=== PATIENT | male | born 1955 | race Caucasian/White ===

== ENCOUNTER 2017-07-09 13:21 | Inpatient (IN) | payer MEDICARE, BC ==
[2017-07-09] MEDS ORDERED: METHYLPREDNISOLONE PF 125MG/VIAL IVP ONE (13:24)
[2017-07-09] MEDS ORDERED: DIPHENHYDRAMINE HCL IV 50 MG/ML VIAL IVP ONE (13:24)
[2017-07-09] MEDS ORDERED: RANITIDINE HCL 50 MG in 0.9 % SODIUM CHLORIDE 100ML 100 ML IVPB ONE (13:24)
--- NOTE | 2017-07-09 13:30 | Emergency Department Record ---
History of Present Illness - General Chief complaint: Shortness of breath Stated complaint: JANIE LITTLE HAS COPD Time Seen by Provider: 07/09/17 13:24 Source: Patient, Family Mode of Arrival: Ambulatory Limitations: No limitations - History of Present Illness Initial Comments: ^2 yo male presents for evaluation for abnormal blood test. The patient states he saw his PCP yesterday. He had labs performed yesterday. He was called today and told to go to the ER for an elevated BNP. The patient states he is always short of breath. He has significant COPD history. He had a history of pacer/defibrillator about 2 years ago. He has a long history of seizures. He is most concerned about his doctor decreasing his Xanax and feels this is a risk for seizures. No edema. His PCP is Dr Peters. The patients metal forger's assistant is in Dr Wallis. (Additional History by Dr Peters) The patient was seen by Dr Peters yesterday. The patient was found to be hypoxic. The patient's working diagnosis was COPD. The patient was directed to the ED with the elevated BNP of 2400. Dr Peters was not aware of any CAD or CHF but the patient does have a pacer. His concern for sending the patient was for a work up for CAD/CHF. Dr Caballero did recommend a d decrease dosing of the narcotic medications as these might be contributing to his hypoxia. MD Complaint: Other (Short of Breath, COPD, Elevated BNP) -: Hour(s) Symptoms: Difficulty breathing Severity: Moderate Treatment Prior to Arrival: None Previous Allergy History: None - Related Data Home Medications Medication Instructions Recorded Confirmed Last Taken Atorvastatin Calcium [Lipitor] 10 mg PO DAILY 07/09/17 07/09/17 07/09/17 Levofloxacin [Levaquin] 500 mg PO ASDIR 07/09/17 07/09/17 07/09/17 Lisinopril [Lisinopril] 2.5 mg PO DAILY 07/09/17 07/09/17 07/09/17 Oxycodone HCl/Acetaminophen 1 tab PO ASDIR 07/09/17 07/09/17 07/09/17 [Percocet 5mg/325mg] Spironolactone [Aldactone] 25 mg PO ASDIR 07/09/17 07/09/17 07/09/17 Previous Rx's Medication Instructions Recorded Albuterol Sulfate [Proair Hfa] 1 - 2 puff IH .EVERY 4-6 HOURS PRN 07/28/15 #1 inhaler Allergies Allergy/AdvReac Type Severity Reaction Status Date / Time pneumococcal vaccine Allergy Unknown SWELLING Verified 07/09/17 13:37 [PNEUMOCOCCAL VACCINE] OF THE TONGUE Review of Systems Constitutional: Denies: Chills, Fever, Malaise, Weakness Eyes: Denies: Eye discharge, Eye pain, Photophobia ENT: Denies: Congestion, Dental pain, Ear pain, Epistaxis, Hearing loss, Throat pain Respiratory: Reports: Cough, Dyspnea, Wheezes. Denies: Hemoptysis, Stridor Cardiovascular: Reports: Dyspnea on exertion. Denies: Chest pain, Edema, Palpitations, Syncope Endocrine: Reports: Fatigue Gastrointestinal: Denies: Abdominal pain, Diarrhea, Nausea, Vomiting Genitourinary: Denies: Dysuria, Frequency, Hematuria Musculoskeletal: Denies: Arthralgia, Back pain, Myalgia Skin: Reports: As per HPI, Rash. Denies: Bruising, Change in color Neurological: Reports: Seizure. Denies: Confusion, Headache, Numbness Psychiatric: Denies: Anxiety Hematological/Lymphatic: Denies: Anemia, Blood Clots, Easy bleeding, Easy bruising, Swollen glands Past Medical History - SOCIAL HISTORY Smoking Status: Former smoker - RESPIRATORY Hx Respiratory Disorders: Yes Hx COPD: Yes - CARDIOVASCULAR Hx Cardio Disorders: Yes Hx Hypotension: Yes Hx Pacemaker/Defib: Yes - NEURO Hx Neuro Disorders: Yes 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) - GI Hx GI Disorders: Yes Hx Hiatal Hernia: Yes - Hx Genitourinary Disorders: No - ENDOCRINE Hx Endocrine Disorders: Yes Hx Diabetes: Yes (hypoglycemic) - MUSCULOSKELETAL Hx Musculoskeletal Disorders: Yes - PSYCH Hx Psych Problems: No - HEMATOLOGY/ONCOLOGY Hx Hematology/Oncology Disorders: Yes Comment:: Hep B Family Medical History Hx Diabetes: Brother/Sister Physical Exam - General General Appearance: Alert, Oriented x3, Cooperative, No acute distress Limitations: No limitations - Head Head exam: Atraumatic, Normocephalic, Normal inspection - Eye Eye exam: Normal appearance, PERRL. negative: Conjunctival injection, Periorbital swelling, Scleral icterus - ENT ENT exam: Mucous membranes moist, Normal orophraynx Ear exam: Normal external inspection Nasal Exam: Normal inspection Mouth exam: Tongue normal. negative: Drooling, Muffled voice Teeth exam: Normal inspection. negative: Dental caries Throat exam: Normal inspection. negative: Tonsillar erythema, Tonsillomegaly, Tonsillar exudate, R peritonsillar mass, L peritonsillar mass - Neck Neck exam: Normal inspection, Full ROM. negative: Lymphadenopathy, Tenderness - Respiratory Respiratory exam: Accessory muscle use, Decreased breath sounds, Rhonchi, Wheezes. negative: Normal lung sounds bilaterally, Chest wall tenderness, Prolonged expiratory, Respiratory distress, Stridor - Cardiovascular Cardiovascular Exam: Regular rate, Normal rhythm, Normal heart sounds Peripheral Pulses: 2+: Radial (R), Radial (L) - GI/Abdominal GI/Abdominal exam: Soft. negative: Tenderness - Rectal Rectal exam: Deferred - exam: Deferred - Extremities Extremities exam: Normal inspection, Full ROM, Normal capillary refill, Other ( no lower extremity edema). negative: Pedal edema, Tenderness - Back Back exam: Reports: Normal inspection (no hives) - Neurological Neurological exam: Alert, Normal gait, Oriented X3 - Psychiatric Psychiatric exam: Normal affect, Normal mood - Skin Skin exam: Dry, Intact, Normal color, Warm Course - Reevaluation(s) Reevaluation #1: The patient's outpatient labs were reviewed BNP was 2462 07/09/17 13:29 07/09/17 13:53 EKG V paced rate is 86, T wave inversion anterior leads. Prior EKG 2015 not paced. [place] [facility] [place] 14:08 07/09/17 14:32 The labs were reviewed The CBC and CMP are unremarkable The BNP is elevated at 3740 The Troponin is negative [facility] [place] available today and will be preformed I recommend admission, echo, cardiology consult tomorrow. 07/09/17 15:07 The chest XR was read as no acute process but consistent with COPD The lungs are clear of infiltrate I SW Dr Gilbert of the admission service for admission for SOPD treatment, hypoxia, ECHO, cardiology consultation Medical Decision Making - Lab Data Result diagrams: 07/09/17 13:35 07/09/17 13:35 Disposition Disposition: Admit Clinical Impression: COPD (chronic obstructive pulmonary disease), Hypoxia, Elevated brain natriuretic peptide (BNP) level Disposition: Still a Patient at [facility] Decision to Admit: Admit from ER Decision to Admit Date: 07/09/17 Decision to Admit Time: 15:17 Condition: (2) Stable Time of Disposition: 15:18 Quality - Quality Measures Quality Measures: N/A - Blood Pressure Screening Does Patient Have Any of the Following: No Blood Pressure Classification: Normal BP Reading Systolic Measurement: 117 Diastolic Measurement: 77 Screening for High Blood Pressure: < Normal BP, F/U Not Required > [[id number]]
[2017-07-09] MEDS ORDERED: LORAZEPAM 2 MG/ML VIAL IV ONE ×2 (13:42→14:50)
[2017-07-09] MEDS ORDERED: IPRATROPIUM/ALBUTEROL (0.5MG/3MG) NEB INH ONE ×2 (13:42→13:44)
[2017-07-09 13:51] LABS: BASO % 0.2 % (0-6); EOS % 3.1 % (0-6); GRAN % 57.1 % (47-80); HEMATOCRIT 41.2 % (42.0-52.0); HEMOGLOBIN 14.3 gm/dl (14.0-18.0); MEAN CELL VOLUME 102.2 fl (81-97); MEAN CORPUSCULAR HGB CONC 34.7 g/dl (32-36); MEAN PLATELET VOLUME 9.9 fl (7.4-10.4); MONO % 7.6 % (0-9); PLATELET COUNT 270 K/uL (130-400); RED BLOOD COUNT 4.03 M/uL (4.40-5.70); RED CELL DISTRIBUTION WIDTH 14.9 % (11.5-14.5); WHITE BLOOD COUNT W/O DIFF 5.1 K/uL (4.2-12.2)
[2017-07-09 13:52] LABS: MEAN CORPUSCULAR HEMOGLOBIN 35.4 pg (27-33)
[2017-07-09 14:11] LABS: ALB/GLOB RATIO 1.4 (1.1-1.8); ALBUMIN 4.2 g/dL (4.0-5.0); ALKALINE PHOSPHATASE 125 U/L (40-129); ALT/SGPT 23 U/L (<41); AST/SGOT 39 U/L (10.0-50.0); BLOOD UREA NITROGEN 8 mg/dL (8-23); CREATININE 0.9 mg/dL (0.7-1.2); EST GLOMERULAR FILTRATION RATE > 60 mL/min; GLUCOSE,RANDOM 123 mg/dL (74-109); TOTAL PROTEIN 7.2 g/dL (6.6-8.7)
[2017-07-09 14:12] LABS: TROPONIN I < 0.30 ng/mL (0.00-0.300)
[2017-07-09] MEDS ORDERED: NICOTINE 21 MG/24 HOUR PATCH TD STA (14:40)
[2017-07-09] MEDS ORDERED: ALBUTEROL SULFATE (0.083%) 2.5 MG/3 ML NEB INH PRN (18:26)
[2017-07-09] MEDS ORDERED: OXYCODONE HCL/APAP 5MG/325MG TABLET PO SCH (18:26)
[2017-07-09] MEDS ORDERED: LEVOFLOXACIN 500MG IVPB 500 MG/100 ML BAG IVPB ONE (18:26)
[2017-07-09] MEDS ORDERED: METHYLPREDNISOLONE PF 125MG/VIAL IVP SCH ×2 (18:26→19:45)
[2017-07-09] MEDS ORDERED: SPIRONOLACTONE 25 MG TAB PO SCH (18:26)
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
[2017-07-09] MEDS ORDERED: LEVOFLOXACIN 500 MG TABLET PO ONE (20:19)
[2017-07-09] MEDS: OXYCODONE HCL/APAP 5MG/325MG TABLET PO PRN (20:31)
[2017-07-09] MEDS: IPRATROPIUM/ALBUTEROL (0.5MG/3MG) NEB INH SCH ×2 (21:30→21:49)
[2017-07-09] MEDS: LEVETIRACETAM 500 MG TABLET PO SCH (21:46)
[2017-07-09] MEDS: METHYLPREDNISOLONE PF 125MG/VIAL IVP SCH (21:50)
[2017-07-09] MEDS ORDERED: TRAZODONE 50 MG TABLET PO SCH (22:00)
[2017-07-09] MEDS ORDERED: ALPRAZOLAM 1 MG TAB PO SCH (22:00)
[2017-07-09] MEDS ORDERED: DIPHENHYDRAMINE HCL 25 MG CAPSULE PO SCH (23:25)
[2017-07-10] MEDS: IPRATROPIUM/ALBUTEROL (0.5MG/3MG) NEB INH SCH ×4 (01:42→14:12)
[2017-07-10] MEDS: OXYCODONE HCL/APAP 5MG/325MG TABLET PO PRN ×2 (02:24→10:10)
--- NOTE | 2017-07-10 07:19 | RADIOLOGY REPORT ---
EXAM: CHEST, TWO VIEWS HISTORY: SMOKING. TECHNIQUE: Frontal and lateral views of the chest were obtained. Comparison: Prior chest from 05/13/15. FINDINGS: The heart size is normal. Left sided pacing device noted. Underlying COPD. The lungs are clear. No pneumothorax. IMPRESSION: COPD. THE LUNGS ARE CLEAR. JOB NUMBER: [id number] MTDD
[2017-07-10 07:36] LABS: BLOOD UREA NITROGEN 15 mg/dL (8-23); CREATININE 1.1 mg/dL (0.7-1.2); EST GLOMERULAR FILTRATION RATE > 60 mL/min; GLUCOSE,RANDOM 202 mg/dL (74-109)
[2017-07-10] MEDS ORDERED: SPIRONOLACTONE 25 MG TAB PO SCH (10:00)
[2017-07-10] MEDS ORDERED: ENOXAPARIN 40 MG/0.4 ML SYR SQ SCH (10:00)
[2017-07-10] MEDS ORDERED: ATORVASTATIN 20 MG TABLET PO SCH (10:00)
[2017-07-10] MEDS ORDERED: BREO (FLUTICASONE/VILANTEROL) 200MCG/25MCG INHALER INH SCH (10:00)
[2017-07-10] MEDS ORDERED: ALPRAZOLAM 0.25 MG TABLET PO SCH (10:00)
[2017-07-10] MEDS ORDERED: LISINOPRIL 5 MG TABLET PO SCH (10:00)
[2017-07-10] MEDS: LEVETIRACETAM 500 MG TABLET PO SCH ×2 (10:12→10:31)
[2017-07-10] MEDS: DOXYCYCLINE HYCLATE 100 MG CAPSULE PO SCH ×2 (10:12→10:32)
[2017-07-10] MEDS ORDERED: ALPRAZOLAM 0.25 MG TABLET PO ONE (10:30)
[2017-07-10] MEDS ORDERED: LEVETIRACETAM 750 MG PO SCH (10:30)
[2017-07-10] MEDS: METHYLPREDNISOLONE PF 125MG/VIAL IVP SCH (10:38)
[2017-07-10] MEDS ORDERED: DIPHENHYDRAMINE HCL 25 MG CAPSULE PO SCH (22:00)
--- NOTE | 2017-07-11 15:09 | Medical Records Consult ---
DATE OF CONSULTATION: 07/10/17 Mr. Arciniega is currently 62 years old, who presented to [facility] as directed his primary care physician. Mr. Arciniega has been having some dyspnea and had an outpatient laboratory profile demonstrating elevated basic natriuretic peptide. Mr. Arciniega is a patient of Dr. Mark Wallis. Mr. Arciniega has a history of a permanent pacemaker placed in 2015, cardiac catheterization in 2015 demonstrating normal coronaries with an ejection fraction mildly reduced. He had a recent echocardiogram demonstrating an ejection fraction of approximately 45%. He presents to [facility] with heart failure with preserved ejection fraction. His BNP was elevated greater than 2000. He denies angina, palpitations, TIA, or syncope. He is a poor historian. He does have a history of COPD and continues to have occasional cigarettes. PAST MEDICAL HISTORY INCLUDES: Alcohol-induced seizures. Type 2 diabetes. COPD. Chronic back pain. PAST SURGICAL HISTORY: Lumbar fusion. Status post permanent pacemaker in 2014. ALLERGIES INCLUDE: CYCLOBENZAPRINE. FLEXERIL. PNEUMOCOCCAL VACCINE. TRICYCLIC COMPOUND. MEDICATIONS CURRENTLY INCLUDE: Lisinopril 2.5 mg daily Spironolactone 25 mg daily Oxycodone/Acetaminophen 5/325 mg daily Atorvastatin 10 mg daily SOCIAL HISTORY: He lives in [place]. He has a history of heavy alcohol abuse. He currently smokes cigarettes occasionally. He used to smoke one pack per day for several years. PHYSICAL EXAMINATION: VITAL SIGNS: Currently, he is afebrile. His blood pressures have been running low in the 80s systolic. Heart rate is 86 beats per minute. LUNGS: Currently are clear. EXTREMITIES: Reveal no edema. LABORATORY PROFILE INCLUDES: White count of 5.1, hemoglobin 14.3, platelets 270, 000, sodium 138, potassium 4.5, BUN 8, and creatinine 0.9. IMPRESSION/PLAN: Mr. Arciniega is a 62-year-old gentleman who presented to [facility] with heart failure preserved ejection fraction. His recent echocardiogram still demonstrates an ejection fraction of approximately 45%. He has a history of nonischemic cardiomyopathy status post permanent pacemaker for symptomatic bradycardia. Mr. Arciniega should discontinue Spironolactone and Lisinopril at this time due to hypotension. He should be placed on Furosemide 20 mg daily. Mr. Arciniega should follow-up with Dr. Wallis in one to two weeks for further assessment. JOB NUMBER: [id number] MTDD
--- NOTE | 2017-07-12 08:22 | Discharge Summary ---
Providers Discharge Summary Date: 07/11/17 Date of admission: 07/09/17 18:01 Attending physician: Guicho Kc Primary care physician: AGUSTINA BECKMAN M.D. Physical Exam - General General Appearance: Alert, Oriented x3, Cooperative, No acute distress, Other ( cachexia) Limitations: No limitations - Head Head exam: Atraumatic, Normocephalic, Normal inspection - Eye Eye exam: Normal appearance, PERRL. negative: Conjunctival injection, Periorbital swelling, Scleral icterus - ENT ENT exam: Mucous membranes moist, Normal orophraynx Ear exam: Normal external inspection Nasal Exam: Normal inspection Mouth exam: Tongue normal. negative: Drooling, Muffled voice Teeth exam: Normal inspection. negative: Dental caries Throat exam: Normal inspection. negative: Tonsillar erythema, Tonsillomegaly, Tonsillar exudate, R peritonsillar mass, L peritonsillar mass - Neck Neck exam: Normal inspection, Full ROM. negative: Lymphadenopathy, Tenderness - Respiratory Respiratory exam: Accessory muscle use, Decreased breath sounds, Rhonchi, Wheezes. negative: Normal lung sounds bilaterally, Chest wall tenderness, Prolonged expiratory, Respiratory distress, Stridor - Cardiovascular Cardiovascular Exam: Regular rate, Normal rhythm, Normal heart sounds Peripheral Pulses: 2+: Radial (R), Radial (L) - GI/Abdominal GI/Abdominal exam: Soft. negative: Tenderness - Rectal Rectal exam: Deferred - exam: Deferred - Extremities Extremities exam: Normal inspection, Full ROM, Normal capillary refill, Other ( no lower extremity edema). negative: Pedal edema, Tenderness - Back Back exam: Reports: Normal inspection (no hives) - Neurological Neurological exam: Alert, Normal gait, Oriented X3 - Psychiatric Psychiatric exam: Anxious, Normal affect, Normal mood - Skin Skin exam: Dry, Intact, Normal color, Warm Hospitalization - Hospitalization Admission Diagnosis: COPD, Elevated BNP - Problem List/Discharge Diagnosis (1) COPD (chronic obstructive pulmonary disease) Plan: - CXR: suggestive of chronic COPD, no infiltrates, hypoxia in the low 90's on 2 liters NC. - tirate oxygen to keep sats > 92%, chest physio daily - continue Duonebs Q4H , Albuterol Q2H PRN Solumedrol 60mg Q12H, Protonix 40mg IV QD - Levaquin 500mg ordered, will change to doxycycline 500mg PO BID Status: Acute Discharge Diagnosis: COPD type: COPD with acute exacerbation Qualified Code(s): J44.1 - Chronic obstructive pulmonary disease with (acute) exacerbation Base Code: J44.9 - CHRONIC OBSTRUCTIVE PULMONARY DISEASE, UNSPECIFIED (2) Elevated brain natriuretic peptide (BNP) level Plan: - BNP >2400 ---> 3700 on admission - CXR shows mild congestion and evidence of defibrillator/pacing device. Indicating a likely history of heart failure. - currently on Lisinopril 2.5mg QD, Aldactone 25mg, will start ASA 81mg and statin, hold BB since acute CHF. - hold IV fluids, 2D echo pending, tele monitoring, cardiology consulted Status: Acute Base Code: R79.89 - OTHER SPECIFIED ABNORMAL FINDINGS OF BLOOD CHEMISTRY (3) Seizure disorder Plan: - resume Keppra 1,500mg BID - Seizure/fall precautions, Status: Acute Base Code: G40.909 - EPILEPSY, UNSP, NOT INTRACTABLE, WITHOUT STATUS EPILEPTICUS (4) Hypotension Plan: - BP currently 88/69, pt is stable. - resume low dose Lisinopril, hold other BP medications. Status: Acute Base Code: I95.9 - HYPOTENSION, UNSPECIFIED (5) Tobacco abuse counseling Status: Acute Base Code: Z71.6 - TOBACCO ABUSE COUNSELING (6) Full code status Plan: Discussed with patient and he would like full resuscitation. Status: Acute Base Code: Z78.9 - OTHER SPECIFIED HEALTH STATUS - Disposition The patient's condition is stable on admission. Will continue therapy as ordered pending 2D echo. - Hospitalization Course Disposition: Home, Self-Care Abnormal Labs: Abnormal Lab Results 07/10/17 Range/Units 06:50 Chloride 94 L (98-107) mmol/L Carbon Dioxide 31.0 H (22-29) mmol/L Random Glucose 202 H (74-109) mg/dL Condition at Discharge: (2) Stable Discharge Medications - Discharge Medications Home Medications: Ambulatory Orders Alprazolam 1 mg PO BID 05/13/15 [Last Taken 07/09/17] Budesonide/Formoterol Fumarate [Symbicort 160-4.5 Mcg Inhaler] 1 puff IH DAILY 05/13/15 [Last Taken 07/09/17] Trazodone HCl 150 mg PO QHS 05/13/15 [Last Taken 07/09/17] Albuterol Sulfate [Proair Hfa] 1 - 2 puff IH .EVERY 4-6 HOURS PRN #1 inhaler [Last Taken 07/09/17] Atorvastatin Calcium [Lipitor] 10 mg PO DAILY 07/09/17 [Last Taken 07/09/17] Levofloxacin [Levaquin] 500 mg PO ASDIR 07/09/17 [Last Taken 07/09/17] Lisinopril [Lisinopril] 2.5 mg PO DAILY 07/09/17 [Last Taken 07/09/17] Oxycodone HCl/Acetaminophen [Percocet 5mg/325mg] 1 tab PO ASDIR 07/09/17 [Last Taken 07/09/17] Spironolactone [Aldactone] 25 mg PO DAILY 07/09/17 [Last Taken 07/09/17] Levetiracetam [Levetiracetam ER] 750 mg PO BID 07/10/17 [Last Taken Unknown] Discharge Plan - Discharge Instructions Activity at Discharge: Wear Oxygen At All Times Diet at Discharge: Regular Diet Instructions: Furosemide (By mouth), How to Stop Smoking (DC), Cigarette Smoking and Your Health (GEN), COPD (Chronic Obstructive Pulmonary Disease) (DC) , How Your Lungs Work (DC), Chronic Lung Disease and Infection Prevention (DC), Nutrition Guidelines for People with COPD (DC) Additional Instructions: 2 Activity: up as tolerated 2 Diet: as tolerated 2 Consults: [] 2 Follow Up: [with primary care in 7-10 days] 2 Dressing/Wound Care: (Type) (Change) 2 Additional: [stop taking spironalactone and lisinopril continue taking all other meds start taking lasix 20 mg daily ] Quality Measures - Quality Measures Quality Measures: Documentation of Current Medications in Medical Record, Screening for High Blood Pressure and F/U Documented - Current Medications Quality Measure: Measure #130: Documentation of Current Medications Documentation of Current Medications: <Current Medications Documented/Reviewed> [J0930] - Blood Pressure Screening Quality Measure: Screening for High Blood Pressure and Follow-Up Documented Does Patient Have Any of the Following: No Blood Pressure Classification: Normal BP Reading Systolic Measurement: 117 Diastolic Measurement: 77 Screening for High Blood Pressure: < Normal BP, F/U Not Required > [V0182] - Elder Abuse Suspicion Index EASI Reference Information: Autumn PRINCE, Jennifer C, Kulwant D, Yaima Whaley.Development and validation of a tool to assist physicians identification of elder abuse: The Elder Abuse Suspicion Index (EASI ). Journal of Elder Abuse and Neglect, 2008; 20 (3): 276-300.
== END 2017-07-10 16:20 | disposition home or self-care (01) | DRG 192 ==
LOC: ER 13:21 → MEDSURG 18:01
PROVIDERS: ADMIT Family Medicine; ATTEND Internal Medicine
DX: J44.1 Chronic obstructive pulmonary disease with (acute) exacerbation (principal); R79.89 Other specified abnormal findings of blood chemistry; Z87.891 Personal history of nicotine dependence; I95.9 Hypotension, unspecified; Z72.0 Tobacco use; I50.9 Heart failure, unspecified; G40.909 Epilepsy, unspecified, not intractable, without status epilepticus; Z95.0 Presence of cardiac pacemaker; E11.9 Type 2 diabetes mellitus without complications; M54.9 Dorsalgia, unspecified
CPT/HCPCS: 93041; 99285 ×2; 96376; 94760; 96374; 96375; 85025; 84484; 80053; 83880; 71020; 94640; 93005; 93010; J2060 ×2; 80048; 94761; 99223; 99239; J1650; J2930

== ENCOUNTER 2018-03-31 18:00 | Emergency (ER) | payer MEDICARE, BC ==
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
[2018-03-31 19:02] LABS: BASO % 0.2 % (0-6); EOS % 2.5 % (0-6); HEMATOCRIT 46.3 % (42.0-52.0); HEMOGLOBIN 15.4 gm/dl (14.0-18.0); LYMPH % 32.7 % (16-45); MEAN CELL VOLUME 97.5 fl (81-97); MEAN CORPUSCULAR HEMOGLOBIN 32.4 pg (27-33); MEAN CORPUSCULAR HGB CONC 33.3 g/dl (32-36); MEAN PLATELET VOLUME 10.5 fl (7.4-10.4); MONO % 7.6 % (0-9); PLATELET COUNT 235 K/uL (130-400); RED BLOOD COUNT 4.75 M/uL (4.40-5.70); RED CELL DISTRIBUTION WIDTH 14.2 % (11.5-14.5); WHITE BLOOD COUNT W/O DIFF 5.7 K/uL (4.2-12.2)
[2018-03-31 19:18] LABS: BLOOD UREA NITROGEN 5 mg/dL (8-23); CREATININE 0.6 mg/dL (0.7-1.2); EST GLOMERULAR FILTRATION RATE > 60 mL/min
[2018-03-31 19:19] LABS: TOTAL PROTEIN 6.7 g/dL (6.6-8.7)
[2018-03-31 19:21] LABS: GLUCOSE,RANDOM 131 mg/dL (74-109)
[2018-03-31 19:23] LABS: ALB/GLOB RATIO 1.6 (1.1-1.8); ALBUMIN 4.1 g/dL (4.0-5.0); ALKALINE PHOSPHATASE 106 U/L (40-129); ALT/SGPT 11 U/L (<41); AST/SGOT 19 U/L (10.0-50.0)
[2018-03-31 19:24] LABS: ACETAMINOPHEN < 5.0 ug/mL (10.0-30.0); SALICYLATE < 0.3 mg/dL (2.8-20)
[2018-03-31 19:42] LABS: BARBITURATE SCREEN URINE NOT DETECTED; BENZODIAZEPINE SCREEN URINE DETECTED; METHADONE SCREEN URINE NOT DETECTED; TRICYCLIC ANTIDEPRESSANT SCRN NOT DETECTED
[2018-03-31 19:43] LABS: AMPHETAMINE SCREEN URINE NOT DETECTED; COCAINE SCREEN URINE NOT DETECTED; METHAMPHETAMINE SCREEN NOT DETECTED; OPIATE SCREEN URINE DETECTED; OXYCODONE SCREEN URINE DETECTED; PHENCYCLIDINE SCREEN URINE NOT DETECTED; PROPOXYPHENE SCREEN URINE NOT DETECTED; THC SCREEN URINE DETECTED
[2018-04-01] MEDS ORDERED: LEVETIRACETAM 500 MG TABLET PO ONE ×2 (09:52→19:19)
[2018-04-01] MEDS ORDERED: MORPHINE SULFATE 30MG TABLET.ER PO ONE ×2 (09:52→18:22)
[2018-04-01] MEDS ORDERED: ALPRAZOLAM 0.25 MG TABLET PO ONE (13:53)
[2018-04-01] MEDS ORDERED: ALPRAZOLAM 1 MG TAB PO ONE (19:19)
[2018-04-01] MEDS ORDERED: NICOTINE 21 MG/24 HOUR PATCH TD SCH (21:15)
[2018-04-01] MEDS ORDERED: MORPHINE SULFATE 30MG TABLET.ER PO SCH (22:00)
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
[2018-04-02] MEDS ORDERED: LEVETIRACETAM 500 MG TABLET PO ONE (05:38)
[2018-04-02] MEDS ORDERED: ALPRAZOLAM 1 MG TAB PO ONE (05:38)
[2018-04-02] MEDS ORDERED: MORPHINE SULFATE 30MG TABLET.ER PO SCH (05:45)
[2018-04-02] MEDS ORDERED: ASPIRIN 81 MG CHEWABLE TABLET PO ONE (06:13)
[2018-04-02] MEDS ORDERED: ACETAMINOPHEN 325 MG TAB PO ONE (10:29)
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
[2018-04-02] MEDS ORDERED: MORPHINE SULFATE 30MG TABLET.ER PO ONE (14:58)
== END 2018-04-02 15:00 ==
LOC: ER 18:00
DX: R45.851 Suicidal ideations (principal); F32.9 Major depressive disorder, single episode, unspecified; C34.90 Malignant neoplasm of unspecified part of unspecified bronchus or lung; S60.811A Abrasion of right wrist, initial encounter; J44.9 Chronic obstructive pulmonary disease, unspecified; Z79.899 Other long term (current) drug therapy; F17.210 Nicotine dependence, cigarettes, uncomplicated
CPT/HCPCS: 71046; 80053; 80305; 80320; 80329; 84443; 85025; 93005; 93010; 99285

== ENCOUNTER 2019-02-10 23:52 | Emergency (ER) | payer MEDICARE, BC ==
[2019-02-10] MEDS ORDERED: OLANZAPINE 10 MG VIAL IM ONE (23:58)
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
[2019-02-11] MEDS ORDERED: **ER** KETAMINE HCL 500MG/10ML VIAL IM ONE (00:09)
[2019-02-11] MEDS ORDERED: LORAZEPAM 2 MG/ML VIAL IM ONE (00:28)
== END 2019-02-11 05:00 | disposition home or self-care (01) ==
LOC: ER 23:52
DX: S01.111A Laceration without foreign body of right eyelid and periocular area, initial encounter (principal); S60.812A Abrasion of left wrist, initial encounter; S60.811A Abrasion of right wrist, initial encounter; R41.82 Altered mental status, unspecified; F10.920 Alcohol use, unspecified with intoxication, uncomplicated; G40.409 Other generalized epilepsy and epileptic syndromes, not intractable, without status epilepticus; Y90.9 Presence of alcohol in blood, level not specified; F17.210 Nicotine dependence, cigarettes, uncomplicated; Z02.89 Encounter for other administrative examinations; I50.9 Heart failure, unspecified; J44.9 Chronic obstructive pulmonary disease, unspecified; Z85.118 Personal history of other malignant neoplasm of bronchus and lung
CPT/HCPCS: 70450; 72125; 96372; 99284

== ENCOUNTER 2019-11-15 14:15 | Observation (INO) | payer MEDICARE ==
[2019-11-15] MEDS ORDERED: IPRATROPIUM/ALBUTEROL (0.5MG/3MG) NEB INH ONE (14:34)
[2019-11-15] MEDS ORDERED: METHYLPREDNISOLONE PF 125MG/VIAL IVP ONE (14:36)
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
[2019-11-15 14:50] LABS: ABSOLUTE NEUTROPHIL COUNT 7.18; BASO % 0.2 % (0-6); GRAN % 66.9 % (47-80); HEMATOCRIT 46.7 % (42.0-52.0); HEMOGLOBIN 14.7 gm/dl (14.0-18.0); LYMPH % 22.6 % (16-45); MEAN CELL VOLUME 96.9 fl (81-97); MEAN CORPUSCULAR HEMOGLOBIN 30.5 pg (27-33); MEAN CORPUSCULAR HGB CONC 31.5 g/dl (32-36); MEAN PLATELET VOLUME 11.4 fl (7.4-10.4); MONO % 10.3 % (0-9); PLATELET COUNT 227 K/uL (130-400); RED BLOOD COUNT 4.82 M/uL (4.40-5.70); RED CELL DISTRIBUTION WIDTH 16.1 % (11.5-14.5); WHITE BLOOD COUNT W/O DIFF 10.7 K/uL (4.2-12.2)
[2019-11-15 15:01] LABS: INR 1.1; PARTIAL THROMBOPLASTIN TIME 32.3 SECONDS (24.5-39.1); PROTHROMBIN TIME (PATIENT) 11.4 SECONDS (9.5-12.1)
[2019-11-15 15:02] LABS: BILIRUBIN,TOTAL < 0.20 mg/dL (0.2-1.0); BLOOD UREA NITROGEN 21 mg/dL (8-23); EST GLOMERULAR FILTRATION RATE > 60 mL/min; TOTAL PROTEIN 7.6 g/dL (6.6-8.7)
[2019-11-15 15:04] LABS: GLUCOSE,RANDOM 129 mg/dL (74-109)
[2019-11-15 15:06] LABS: INFLUENZA A NEGATIVE (NEGATIVE); INFLUENZA B NEGATIVE (NEGATIVE)
[2019-11-15 15:07] LABS: ALB/GLOB RATIO 1.4 (1.1-1.8); ALBUMIN 4.4 g/dL (4.0-5.0); ALKALINE PHOSPHATASE 96 U/L (40-129); ALT/SGPT 29 U/L (<41); AST/SGOT 81 U/L (10.0-50.0)
[2019-11-15 15:46] LABS: CKMB 54.3 ng/mL (<6.73)
--- NOTE | 2019-11-15 15:49 | RADIOLOGY REPORT ---
EXAMINATION: Two View Chest Radiographs EXAM DATE: 11/15/2019 3:36 PM TECHNIQUE: Frontal and lateral views INDICATION: cough COMPARISON: Chest x-ray: November 13, 2019, 04/02/2018, 07/09/2017, 05/13/2015 ENCOUNTER: Not applicable FINDINGS: There is a pacemaker with 2 uncomplicated leads entering through left subclavian vein. The heart is a t the upper limits of normal for size. The pulmonary vasculature is not congested. Mildly prominent h ilar vasculature appears stable from 07/09/2017. The lungs are hyperinflated. There is mild predominan tly linear density in the left lung base likely in the lower lobe posteriorly as seen in the lateral view. The upper lungs are clear. IMPRESSION: 1. COPD 2. Prominently linear left lower lobe density posteriorly at the lung base has been present on multip le previous exams and likely represents some chronic atelectasis or scarring. Dictated by: Mir Beach MD on 11/15/2019 3:44 PM. .
[2019-11-15 15:54] LABS: CKMB RELATIVE INDEX 1.7 % (0-4)
[2019-11-15] MEDS ORDERED: AZITHROMYCIN 500 MG in 0.9 % SODIUM CHLORIDE 250ML 250 ML IVPB ONE (15:57)
[2019-11-15] MEDS ORDERED: CEFTRIAXONE 1GM/50ML BAG 1 GM/50 ML BAG IVPB ONE (15:58)
[2019-11-15] MEDS ORDERED: ALPRAZOLAM 0.25 MG TABLET PO ONE (16:13)
[2019-11-15] MEDS ORDERED: NICOTINE 21 MG/24 HOUR PATCH TD SCH (16:40)
[2019-11-15] MEDS: CEFTRIAXONE 1GM/50ML BAG 1 GM/50 ML BAG IVPB SCH (17:18)
[2019-11-15] MEDS: ASPIRIN 325 MG TAB ENTERIC-COATED PO SCH (17:19)
[2019-11-15] MEDS: ALPRAZOLAM 0.25 MG TABLET PO SCH ×2 (17:20→21:05)
[2019-11-15] MEDS: OXYCODONE SR 10 MG TAB.ER.12H PO SCH (17:27)
[2019-11-15] MEDS: 0.9 % SODIUM CHLORIDE 1000ML 1,000 ML IV ONE (17:31)
[2019-11-15] MEDS: IPRATROPIUM/ALBUTEROL (0.5MG/3MG) NEB INH SCH (18:12)
[2019-11-15] MEDS: ATORVASTATIN 20 MG TABLET PO SCH ×2 (19:47→22:08)
[2019-11-15 20:24] LABS: CKMB 55.6 ng/mL (<6.73)
[2019-11-15] MEDS: LEVETIRACETAM 500 MG TABLET PO SCH (21:05)
[2019-11-15 21:09] LABS: CKMB RELATIVE INDEX 1.5 % (0-4)
[2019-11-16 04:27] LABS: ABSOLUTE NEUTROPHIL COUNT 3.53; HEMATOCRIT 41.5 % (42.0-52.0); HEMOGLOBIN 12.9 gm/dl (14.0-18.0); MEAN CORPUSCULAR HEMOGLOBIN 30.1 pg (27-33); MEAN CORPUSCULAR HGB CONC 31.1 g/dl (32-36); MEAN PLATELET VOLUME 11.1 fl (7.4-10.4); PLATELET COUNT 168 K/uL (130-400); RED BLOOD COUNT 4.28 M/uL (4.40-5.70); RED CELL DISTRIBUTION WIDTH 15.8 % (11.5-14.5); WHITE BLOOD COUNT W/O DIFF 4.3 K/uL (4.2-12.2)
[2019-11-16] MEDS: CEFTRIAXONE 1GM/50ML BAG 1 GM/50 ML BAG IVPB SCH (04:29)
[2019-11-16] MEDS: 0.9 % SODIUM CHLORIDE 1000ML 1,000 ML IV ONE (04:36)
[2019-11-16 04:42] LABS: BLOOD UREA NITROGEN 18 mg/dL (8-23); CREATININE 0.8 mg/dL (0.7-1.2); EST GLOMERULAR FILTRATION RATE > 60 mL/min; GLUCOSE,RANDOM 250 mg/dL (74-109)
[2019-11-16 04:46] LABS: CKMB 41.9 ng/mL (<6.73)
[2019-11-16] MEDS: IPRATROPIUM/ALBUTEROL (0.5MG/3MG) NEB INH SCH ×3 (04:49→10:26)
[2019-11-16 04:51] LABS: CKMB RELATIVE INDEX 1.48 % (0-4)
[2019-11-16 05:28] LABS: ANISOCYTOSIS 1+; PLATELET ESTIMATE n (NORMAL)
[2019-11-16] MEDS: OXYCODONE SR 10 MG TAB.ER.12H PO SCH (05:53)
[2019-11-16] MEDS ORDERED: ALPRAZOLAM 0.25 MG TABLET PO PRN (08:45)
[2019-11-16] MEDS: ASPIRIN 325 MG TAB ENTERIC-COATED PO SCH (09:12)
[2019-11-16] MEDS: LEVETIRACETAM 500 MG TABLET PO SCH (09:12)
[2019-11-16] MEDS ORDERED: METHYLPREDNISOLONE PF 125MG/VIAL IVP SCH (10:00)
[2019-11-16] MEDS ORDERED: NICOTINE 21 MG/24 HOUR PATCH TD SCH (10:15)
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
[2019-11-16] MEDS ORDERED: ENOXAPARIN 40 MG/0.4 ML SYR SQ SCH (10:45)
--- NOTE | 2019-11-16 11:11 | Discharge Summary ---
Providers Discharge Summary Date: 11/16/19 Date of admission: 11/15/19 16:34 Expected Date of Discharge: 11/16/19 Attending physician: Marco Johnson Primary care physician: NARCISO HAAS M.D. Physical Exam - Vital Signs Vital Signs: Vital Signs - Last 24 Hrs Temp Pulse Pulse Pulse Resp BP Pulse Ox 11/16/19 10:26 64 20 92 L 11/16/19 07:51 97.6 F 79 16 103/67 91 L 11/16/19 06:19 63 14 94 L 11/16/19 05:02 97.7 F 74 22 102/64 92 L 11/15/19 23:47 98.1 F 75 22 89/56 95 11/15/19 20:46 97.6 F 91 H 22 95/62 91 L 11/15/19 19:49 16 11/15/19 18:40 92 H 20 94 L 11/15/19 18:12 98 H 20 94 L 11/15/19 17:19 79 20 91 L 11/15/19 16:40 97.6 F 104 H 20 102/62 91 L 11/15/19 15:40 54 L 20 95/68 92 L 11/15/19 14:36 105 H 18 94 L 11/15/19 14:28 98.3 F 107 H 24 100/85 97 - General General Appearance: Alert, Oriented x3, Cooperative, No acute distress Limitations: No limitations - Head Head exam: Atraumatic, Normocephalic - Eye Eye exam: Normal appearance, PERRL - ENT ENT exam: Normal exam, Mucous membranes moist, Normal external ear exam, Normal orophraynx, TM's normal bilaterally Nasal Exam: Normal inspection. negative: Discharge, Sinus tenderness Throat exam: Normal inspection. negative: Tonsillar erythema, Tonsillar exudate - Neck Neck exam: Normal inspection, Full ROM. negative: Tenderness - Respiratory Respiratory exam: Decreased breath sounds, Prolonged expiratory, Wheezes. negative: Normal lung sounds bilaterally, Accessory muscle use - Cardiovascular Cardiovascular Exam: Regular rate, Normal rhythm, Normal heart sounds - GI/Abdominal GI/Abdominal exam: Soft, Normal bowel sounds. negative: Tenderness - Extremities Extremities exam: Normal inspection, Full ROM, Normal capillary refill. negative: Tenderness - Neurological Neurological exam: Alert, Normal gait. negative: Abnormal gait, Motor sensory deficit - Psychiatric Psychiatric exam: negative: Anxious Hospitalization - Hospitalization Admission Diagnosis: 1. COPD Exacerbation with Chest Pain. - Problem List/Discharge Diagnosis (1) Bronchitis Current Visit: Yes Status: Acute Base Code: J40 - BRONCHITIS, NOT SPECIFIED ACUTE OR CHRONIC Diagnosis Priority: Primary (2) COPD (chronic obstructive pulmonary disease) Current Visit: Yes Status: Acute Discharge Diagnosis: COPD type: unspecified COPD Qualified Code(s): J44.9 - Chronic obstructive pulmonary disease, unspecified Base Code: J44.9 - CHRONIC OBSTRUCTIVE PULMONARY DISEASE, UNSPECIFIED (3) Hypertension Current Visit: No Status: Acute Base Code: I10 - ESSENTIAL (PRIMARY) HYPERTENSION (4) Hypoxia Current Visit: No Status: Acute Base Code: R09.02 - HYPOXEMIA - Disposition patient would like to be treated at home and he is feeling better - Hospitalization Course Procedures: Imaging and X-Rays 11/15/19 14:33 CHEST 2 VIEWS [RAD] Stat Cardiology Procedures 11/15/19 14:33 Tip Finisher NOW EKG NOW 11/15/19 16:40 Tip Finisher .Continuous EKG QDX2@0600 Abnormal Labs: Abnormal Lab Results 11/15/19 11/15/19 11/15/19 Range/Units 14:28 14:28 14:28 RBC (4.40-5.70) M/uL Hgb (14.0-18.0) gm/dl Hct (42.0-52.0) % MCHC 31.5 L (32-36) g/dl RDW 16.1 H (11.5-14.5) % MPV 11.4 H (7.4-10.4) fl Monocytes % 10.3 H (0-9) % Sodium (136-145) mmol/L Potassium (3.4-4.5) mmol/L Chloride 93 L (98-107) mmol/L Random Glucose 129 H (74-109) mg/dL Calcium (8.8-10.2) mg/dL Total Bilirubin < 0.20 L (0.2-1.0) mg/dL AST 81 H (10.0-50.0) U/L Creatine Kinase (39-308) U/L CK-MB (CK-2) (<6.73) ng/mL Troponin T 0.027 H (0-0.010) ng/mL C-Reactive Protein 8.93 H (<0.5) mg/dL 11/15/19 11/15/19 11/16/19 Range/Units 15:25 19:55 04:15 RBC (4.40-5.70) M/uL Hgb (14.0-18.0) gm/dl Hct (42.0-52.0) % MCHC (32-36) g/dl RDW (11.5-14.5) % MPV (7.4-10.4) fl Monocytes % (0-9) % Sodium (136-145) mmol/L Potassium (3.4-4.5) mmol/L Chloride (98-107) mmol/L Random Glucose (74-109) mg/dL Calcium (8.8-10.2) mg/dL Total Bilirubin (0.2-1.0) mg/dL AST (10.0-50.0) U/L Creatine Kinase 3135 H 3620 H 2840 H (39-308) U/L CK-MB (CK-2) 54.3 H 55.6 H 41.9 H (<6.73) ng/mL Troponin T (0-0.010) ng/mL C-Reactive Protein (<0.5) mg/dL 11/16/19 11/16/19 Range/Units 04:15 04:15 RBC 4.28 L (4.40-5.70) M/uL Hgb 12.9 L (14.0-18.0) gm/dl Hct 41.5 L (42.0-52.0) % MCHC 31.1 L (32-36) g/dl RDW 15.8 H (11.5-14.5) % MPV 11.1 H (7.4-10.4) fl Monocytes % (0-9) % Sodium 133 L (136-145) mmol/L Potassium 5.2 H (3.4-4.5) mmol/L Chloride 94 L (98-107) mmol/L Random Glucose 250 H (74-109) mg/dL Calcium 8.7 L (8.8-10.2) mg/dL Total Bilirubin (0.2-1.0) mg/dL AST (10.0-50.0) U/L Creatine Kinase (39-308) U/L CK-MB (CK-2) (<6.73) ng/mL Troponin T (0-0.010) ng/mL C-Reactive Protein (<0.5) mg/dL Condition at Discharge: (2) Stable VTE Discharge VTE Reason For No Overlap Therapy: Not Indicated Discharge Medications - Discharge Medications Home Medications: Ambulatory Orders Aspirin [Aspir 81] 81 mg PO ASDIR tab.dr 05/26/18 [Last Taken Unknown] Oxycodone HCl [Oxycontin] 30 mg PO Q12H tab 07/15/18 [Last Taken Unknown] Discharge Plan - Discharge Instructions Activity at Discharge: Increase Activity as Tolerated Additional Instructions: follow up with Dr Haas in one week pick z jessee at the drug store and start that tomorrow also start his prednisone 20 mg BID for 5 days drink lots of fluid continue his home meds Quality Measures - Quality Measures Quality Measures: Documentation of Current Medications in Medical Record, Screening for High Blood Pressure and F/U Documented - Current Medications Quality Measure: Measure #130: Documentation of Current Medications Documentation of Current Medications: <Current Medications Documented/Reviewed> [[id number]] - Blood Pressure Screening Quality Measure: Screening for High Blood Pressure and Follow-Up Documented Does Patient Have Any of the Following: No Blood Pressure Classification: Normal BP Reading Systolic Measurement: 103 Diastolic Measurement: 67 Screening for High Blood Pressure: < Normal BP, F/U Not Required > [G8783] - Elder Abuse Suspicion Index EASI Reference Information: Autumn PRINCE, Jennifer C, Kulwant D, Yaima Whaley.Development and validation of a tool to assist physicians identification of elder abuse: The Elder Abuse Suspicion Index (EASI ). Journal of Elder Abuse and Neglect, 2008; 20 (3): 276-300.
[2019-11-16] MEDS ORDERED: AZITHROMYCIN 250 MG in 0.9 % SODIUM CHLORIDE 250ML 250 ML IVPB SCH (16:30)
[2019-11-16] MEDS ORDERED: OXYCODONE SR 10 MG TAB.ER.12H PO SCH (18:00)
== END 2019-11-16 13:40 | disposition home or self-care (01) ==
LOC: ER 14:15 → MEDSURG 16:34
PROVIDERS: ADMIT Emergency Medicine; ATTEND Emergency Medicine
DX: R07.9 Chest pain, unspecified (principal); J44.1 Chronic obstructive pulmonary disease with (acute) exacerbation; J40 Bronchitis, not specified as acute or chronic; R09.02 Hypoxemia; C34.90 Malignant neoplasm of unspecified part of unspecified bronchus or lung; I50.9 Heart failure, unspecified; B19.20 Unspecified viral hepatitis C without hepatic coma; E11.649 Type 2 diabetes mellitus with hypoglycemia without coma; I95.9 Hypotension, unspecified; Z99.81 Dependence on supplemental oxygen; Z95.0 Presence of cardiac pacemaker; F17.210 Nicotine dependence, cigarettes, uncomplicated; Z98.61 Coronary angioplasty status
CPT/HCPCS: 71046; 80048; 80053; 82550; 82553; 84484; 85025; 85027; 85610; 85730; 86140; 87400; 93005; 93010; 94640; 94761; 96365; 96366; 96375; 99220; 99285; J0456; J0696; J1650; J2930; J7050